=== PATIENT | female | born 1965 | race Caucasian/White ===

== ENCOUNTER 2022-05-19 19:17 | Emergency (ER) | payer BC, SELFPAY ==
[2022-05-19 19:32] VITALS: BP 135/82; PULSE 71; RESP 16; TEMP 36.8; O2SAT 100; BMI 30.4
[2022-05-19 20:00] VITALS: BP 129/82; PULSE 72; RESP 16; O2SAT 99
--- NOTE | 2022-05-19 20:05 | ED.ARRPALP ---
HPI - Arrhythmia/Palpitations General Chief Complaint: Arrhythmia/Palpitations Stated Complaint: irregular heartbeat Time Seen by Provider: 05/19/22 19:45 History of Present Illness HPI narrative: Patient is a 56 year old woman who presents with irregular pulse for 2 days. No chest pain, SOB, LOC. No orthopnea or pnd. Symptoms are mild and not associated with activity. Related Data Home Medications Medication Instructions Recorded Confirmed Gila 05/19/22 Singulair 05/19/22 Vitamin D3 05/19/22 calcium 05/19/22 omeprazole 20 mg capsule,delayed mg 05/19/22 release potassium chloride 10 mEq meq 05/19/22 capsule,extended release semaglutide 1 mg/dose (4 mg/3 mL) mg SUBCUT .weekly 05/19/22 subcutaneous pen injector (Ozempic) simvastatin 10 mg tablet 10 mg PO DAILY 05/19/22 05/19/22 triamterene 50 0.5 cap PO DAILY 05/19/22 05/19/22 mg-hydrochlorothiazide 25 mg capsule Allergies Allergy/AdvReac Type Severity Reaction Status Date / Time flu shot AdvReac Uncoded 05/19/22 19:41 Review of Systems Status of ROS: Reports: 10 or more systems reviewed and unremarkable except as noted in History and below Exam Const: Vital Signs, click to edit/add: Vital Signs - 24 hr 05/19/22 19:32 Temperature 98.2 F Pulse Rate [Apical ] 71 Respiratory Rate 16 Blood Pressure [Le ft Upper Arm] 135/82 Pulse Oximetry 100 HENMT: Common normals: normocephalic, moist oral mucous membranes and dentition normal Head and scalp: normocephalic Eye: General eye: normal appearance of both eyes Chest: Common normals: inspection of chest normal, palpation of chest normal, inspection of breasts normal and palpation of breasts normal Cardio: Common normals: regular rate, regular rhythm, no gallops and no clicks Rate: regular rate Rhythm: regular rhythm Course Course Hospital Course: EKG Shows irregular PAC's Vital Signs Vital signs: Initial Vital Signs Temperature 98.2 F 05/19/22 19:32 Temperature Source Temporal Artery Scan 05/19/22 19:32 Pulse Rate 71 05/19/22 19:32 Respiratory Rate 16 05/19/22 19:32 Blood Pressure 135/82 05/19/22 19:32 Blood Pressure Mean 99 05/19/22 19:32 Blood Pressure Position Supine 05/19/22 19:32 Pulse Oximetry 100 05/19/22 19:32 Oxygen Delivery Method 05/19/22 19:32 Vital Signs Temperature 98.2 F 05/19/22 19:32 Pulse Rate 71 05/19/22 19:32 Respiratory Rate 16 05/19/22 19:32 Blood Pressure 135/82 05/19/22 19:32 Pulse Oximetry 100 05/19/22 19:32 Temperature 98.2 F 05/19/22 19:32 Pulse Rate 71 05/19/22 19:32 Respiratory Rate 16 05/19/22 19:32 Blood Pressure 135/82 05/19/22 19:32 Pulse Oximetry 100 05/19/22 19:32 Discharge Plan Discharge Clinical Impression: PAC (premature atrial contraction) Patient Disposition: Home, Self-Care Condition: Stable Instructions: Premature Atrial Contractions (ED) Activity Level: No Restrictions Discharge Diet: Regular Prescriptions: No Action Ozempic 1 mg/dose (4 mg/3 mL) pen injector SUBCUT .weekly 0RF potassium chloride 10 mEq capsule, extended release 0RF omeprazole 20 mg capsule,delayed release(DR/EC) 0RF calcium 0RF Vitamin D3 0RF Singulair 0RF simvastatin 10 mg tablet 10 mg PO DAILY 0RF triamterene-hydrochlorothiazid 50-25 mg capsule 0.5 cap PO DAILY 0RF Gila 0RF Follow Up/Referrals: Katy Downey MD [Primary Care Provider] - Stand Alone Forms: MyHealth Info Instructions
[2022-05-19 20:30] VITALS: BP 120/60; PULSE 75; RESP 16; O2SAT 97
--- NOTE | 2022-05-19 20:36 | ED.NURSE ---
Pt did ambulate to [facility] independently, toleates well
== END 2022-05-19 21:04 | disposition home or self-care (01) ==
LOC: ED 20:20
PROVIDERS: Emergency Provider Internal Medicine; PCP Family Medicine
DX: I49.1 Atrial premature depolarization (principal)
CPT/HCPCS: 93005; 99283; 99284